=== PATIENT | male | born 1925 | race Caucasian/White ===

== ENCOUNTER 2017-05-20 21:58 | Outpatient (CLI) | END 2017-05-20 21:59 | disposition short-term general hospital (02) | LOC: AMBL 21:58 | PROVIDERS: ATTEND Internal Medicine Geriatric Medicine | DX: R41.82 Altered mental status, unspecified (principal); I48.91 Unspecified atrial fibrillation; I95.9 Hypotension, unspecified; H91.90 Unspecified hearing loss, unspecified ear ==